=== PATIENT | male | born 1985 ===

== ENCOUNTER 2023-03-26 11:39 | Inpatient (IN) | payer OTHER ==
[~2023-03-26] VITALS: Ht 180.3 cm; Wt 88.5 kg
[2023-03-27] MEDS ORDERED: VASOTEC2.5 MG PO (09:40)
[2023-04-03] MEDS ORDERED: PEPCID AC20 MG PO (08:36)
[2023-04-03] MEDS ORDERED: HYOSCYAMINE0.125 M1 SL (08:36)
[2023-04-03] MEDS ORDERED: TRAM1TAB98 PO (08:37)
== END 2023-04-03 09:11 | disposition home or self-care (01) | DRG 331 ==
LOC: O/R 04-02 05:43 → SURG 04-02 09:00
PROVIDERS: ADMIT Surgery; ATTEND Surgery
PROC: 0DBH4ZZ Excision of Cecum, Percutaneous Endoscopic Approach (ICD-10-PCS; principal; 2023-04-02 14:00)
DX: D12.1 Benign neoplasm of appendix (principal); Z20.822 Contact with and (suspected) exposure to COVID-19